=== PATIENT | female | born 1970 | race Two or more races ===

== ENCOUNTER 2018-12-22 13:34 | Emergency (ER) | payer BC ==
[~2018-12-22] VITALS: Ht 160 cm; Wt 77.6 kg
[2018-12-22 14:15] VITALS: BP 145/76
[2018-12-22] MEDS ORDERED: ACETAMINOPHEN/CODEINE#3 (300/30mg) TAB PO ONE (17:15)
== END 2018-12-22 17:49 | disposition home or self-care (01) ==
LOC: ER 13:34
DX: S92.352A Displaced fracture of fifth metatarsal bone, left foot, initial encounter for closed fracture (principal); X58.XXXA Exposure to other specified factors, initial encounter; Y93.89 Activity, other specified; Y92.89 Other specified places as the place of occurrence of the external cause; Y99.8 Other external cause status
CPT/HCPCS: 29515; 73610

== ENCOUNTER 2019-04-25 15:36 | Emergency (ER) | payer BC ==
[~2019-04-25] VITALS: Ht 157.5 cm; Wt 77.6 kg
[2019-04-25 16:19] VITALS: BP 118/77
== END 2019-04-25 17:41 | disposition home or self-care (01) ==
LOC: ER 15:36
DX: S93.601A Unspecified sprain of right foot, initial encounter (principal); X50.1XXA Overexertion from prolonged static or awkward postures, initial encounter; Y93.E9 Activity, other interior property and clothing maintenance; Y92.098 Other place in other non-institutional residence as the place of occurrence of the external cause; Y99.8 Other external cause status
CPT/HCPCS: 73630

== ENCOUNTER 2020-12-21 07:13 | Emergency (ER) | payer BC ==
[~2020-12-21] VITALS: Ht 157.5 cm; Wt 79.4 kg
[2020-12-21 08:11] VITALS: BP 153/98
[2020-12-21] MEDS ORDERED: ACETAMINOPHEN 325 MG TAB PO ONE (08:30)
[2020-12-21] MEDS ORDERED: cefTRIAXone SOD 1,000 MG VL IM ONE (08:30)
== END 2020-12-21 08:57 | disposition home or self-care (01) ==
LOC: ER 07:13
DX: L02.02 Furuncle of face (principal)
CPT/HCPCS: 96372; 99283; J0696

== ENCOUNTER 2022-02-03 13:20 | Emergency (ER) | payer BC ==
[~2022-02-03] VITALS: Ht 157.5 cm; Wt 76.0 kg
[2022-02-03 14:23] LABS: Basophils # (auto) 0 10 ^3/uL (0-0.2); Basophils % (auto) 0.4 % (0.0-2.0); Eosinophils # (auto) 0.1 10 ^3/uL (0-0.8); Eosinophils % (auto) 2.1 % (0.0-7.0); Hemoglobin 12.9 g/dL (12.2-16.2); Lymphocytes # (auto) 1.4 10 ^3/uL (0.4-5.4); Lymphocytes % (auto) 34.2 % (10.0-50.0); Mean Corpuscular Hemoglobin 30.7 pg (28.0-32.0); Mean Corpuscular Hgb Conc. 33.8 g/dL (32.0-36.0); Mean Corpuscular Volume 90.9 fL (80.0-100.0); Monocytes # (auto) 0.5 10 ^3/uL (0-1.3); Monocytes % (auto) 11.5 % (0.0-12.0); Neutrophils # (auto) 2.2 10 ^3/uL (1.6-8.6); Neutrophils % (auto) 51.8 % (37.0-80.0); Nucleated Red Blood Cells % 0.1 %; Red Blood Cells 4.18 10^6/uL (4.0-5.20); Red Cell Distribution Width 13.1 % (11.8-14.3); White Blood Cell 4.2 10^3/uL (4.4-10.8)
[2022-02-03 14:40] LABS: Albumin 3.7 g/dL (3.4-5.0); BUN/Creatinine Ratio 23.1; Calcium 8.7 mg/dL (8.5-10.1)
[2022-02-03 14:45] LABS: Bilirubin, Total 0.5 mg/dL (0.2-1.0); Potassium 4.4 mmol/L (3.5-5.1); Total Protein 6.7 g/dL (6.4-8.2)
[2022-02-03 14:53] LABS: Urine Bacteria FEW /hpf (None Seen); Urine Blood 1+ /uL (Negative); Urine Specific Gravity 1.015 (1.001-1.035); Urine WBC <1 /hpf (0 - 5)
[2022-02-03 15:27] VITALS: BP 135/89
[2022-02-03] MEDS ORDERED: CEPH-322 PO (15:35)
[2022-02-03] MEDS ORDERED: KETOROLAC TROMETH 30 MG/ML 1ML VIAL IM ONE (15:45)
[2022-02-03] MEDS ORDERED: CEPHALEXIN 250 MG CAP PO ONE (15:45)
== END 2022-02-03 15:42 | disposition home or self-care (01) ==
LOC: ER 13:20
DX: N30.00 Acute cystitis without hematuria (principal); E03.9 Hypothyroidism, unspecified
CPT/HCPCS: 36415; 80053; 81001; 81025; 85025

== ENCOUNTER 2022-02-13 17:11 | Emergency (ER) | payer BC ==
[~2022-02-13] VITALS: Ht 157.5 cm; Wt 85.0 kg
[~2022-02-13 17:11] MED LIST: CEPH-322 PO
[2022-02-13 18:33] LABS: Urine Bacteria NONE SEEN /hpf (None Seen); Urine Blood 2+ /uL (Negative); Urine Specific Gravity 1.015 (1.001-1.035); Urine WBC 1 /hpf (0 - 5)
[2022-02-13 19:05] LABS: Basophils # (auto) 0 10 ^3/uL (0-0.2); Basophils % (auto) 0.6 % (0.0-2.0); Eosinophils # (auto) 0.1 10 ^3/uL (0-0.8); Hematocrit 39.9 % (36.0-46.0); Hemoglobin 13.4 g/dL (12.2-16.2); Lymphocytes # (auto) 1.7 10 ^3/uL (0.4-5.4); Lymphocytes % (auto) 39.3 % (10.0-50.0); Mean Corpuscular Hemoglobin 30.7 pg (28.0-32.0); Mean Corpuscular Hgb Conc. 33.6 g/dL (32.0-36.0); Mean Corpuscular Volume 91.4 fL (80.0-100.0); Monocytes # (auto) 0.3 10 ^3/uL (0-1.3); Monocytes % (auto) 6.4 % (0.0-12.0); Neutrophils # (auto) 2.2 10 ^3/uL (1.6-8.6); Neutrophils % (auto) 50.7 % (37.0-80.0); Red Blood Cells 4.37 10^6/uL (4.0-5.20); Red Cell Distribution Width 12.7 % (11.8-14.3); White Blood Cell 4.4 10^3/uL (4.4-10.8)
[2022-02-13 19:17] LABS: Potassium 3.5 mmol/L (3.5-5.1)
[2022-02-13 19:22] LABS: Albumin 3.8 g/dL (3.4-5.0); BUN/Creatinine Ratio 18.7; Calcium 8.5 mg/dL (8.5-10.1)
[2022-02-13 19:27] LABS: Bilirubin, Total 0.9 mg/dL (0.2-1.0); Total Protein 7.3 g/dL (6.4-8.2)
[2022-02-13] MEDS ORDERED: IOHEXOL 350 MG/ML 100ML IJ ONE (20:52)
[2022-02-13] MEDS ORDERED: KETOROLAC TROMETH 30 MG/ML 1ML VIAL IV ONE (21:45)
[2022-02-13 22:10] VITALS: BP 130/90
== END 2022-02-13 22:15 | disposition home or self-care (01) ==
LOC: ER 17:11
DX: K57.90 Diverticulosis of intestine, part unspecified, without perforation or abscess without bleeding (principal); Z79.899 Other long term (current) drug therapy
CPT/HCPCS: 36415; 74176; 74177; 80053; 81001; 83690; 85025; 96374; 99285; J1885; Q9967

== ENCOUNTER 2022-07-21 21:42 | Emergency (ER) | payer BC ==
[~2022-07-21] VITALS: Ht 152.4 cm; Wt 90.0 kg
[~2022-07-21 21:42] MED LIST changes: -CEPH-322 PO; +CEPH250C PO
[2022-07-21] MEDS ORDERED: DexAMETHasone SOD PHOS 10MG/1ML VIAL INJ IV ONE (22:00)
[2022-07-21] MEDS ORDERED: IPRATROPIUM BROM 0.5 MG/2.5ML INH SOL NEB ONE (22:00)
[2022-07-21] MEDS ORDERED: ALBUTEROL SULF 2.5 MG/0.5ML(0.5%) NEB SOLN NEB ONE (22:00)
[2022-07-21] MEDS ORDERED: BUDESONIDE (INHALATION) 0.5 MG/2 ML NEB NEB ONE (22:00)
[2022-07-21] MEDS ORDERED: SODIUM CHLORIDE 0.9% 1,000 ML IV ONE (22:00)
[2022-07-21] MEDS ORDERED: FAMOTIDINE (10MG/ML) 2ML VL IV ONE (22:15)
[2022-07-21] MEDS ORDERED: EPINEPHrine HCL 0.5 ML NEB NEB ONE (22:15)
[2022-07-21 22:32] LABS: Basophils # (auto) 0 10 ^3/uL (0-0.2); Basophils % (auto) 0.5 % (0.0-2.0); Eosinophils # (auto) 0.1 10 ^3/uL (0-0.8); Hematocrit 45.3 % (36.0-46.0); Hemoglobin 15.4 g/dL (12.2-16.2); Lymphocytes # (auto) 2.8 10 ^3/uL (0.4-5.4); Lymphocytes % (auto) 42.5 % (10.0-50.0); Mean Corpuscular Hemoglobin 30.7 pg (28.0-32.0); Mean Corpuscular Volume 90.1 fL (80.0-100.0); Monocytes # (auto) 0.4 10 ^3/uL (0-1.3); Monocytes % (auto) 6.5 % (0.0-12.0); Neutrophils # (auto) 3.3 10 ^3/uL (1.6-8.6); Neutrophils % (auto) 49.5 % (37.0-80.0); Nucleated Red Blood Cells % 0.3 %; Red Blood Cells 5.03 10^6/uL (4.0-5.20); Red Cell Distribution Width 13.3 % (11.8-14.3); White Blood Cell 6.7 10^3/uL (4.4-10.8)
[2022-07-21 22:49] LABS: Albumin 4.3 g/dL (3.4-5.0); Calcium 9.2 mg/dL (8.5-10.1)
[2022-07-21 22:53] LABS: BUN/Creatinine Ratio 14.7 (10.0-20.0); Bilirubin, Total 0.7 mg/dL (0.2-1.0); Total Protein 7.8 g/dL (6.4-8.2)
[2022-07-21 23:43] LABS: Lactic Acid w/Reflex 2.3 mmol/L (0.4-2.0)
[2022-07-21] MEDS ORDERED: IOHEXOL 350 MG/ML 100ML IJ ONE (23:56)
[2022-07-22 01:00] VITALS: BP 121/75
[2022-07-22] MEDS ORDERED: EPIN0.1I11 IJ (01:07)
[2022-07-22] MEDS ORDERED: METH4PAK PO (01:10)
== END 2022-07-22 02:46 | disposition home or self-care (01) ==
LOC: ER 21:42 → EDBD 21:42 → ER 07-22 02:46
DX: T88.6XXA Anaphylactic reaction due to adverse effect of correct drug or medicament properly administered, initial encounter (principal); Z88.8 Allergy status to other drugs, medicaments and biological substances; Z98.890 Other specified postprocedural states; Y92.89 Other specified places as the place of occurrence of the external cause
CPT/HCPCS: 36415; 71275; 80053; 83605; 84484; 85025; 85379; 87040; 93970; 94640; 96361; 96374; 96375; 99285; J1100; J3490; J7030; J7644; Q9967

== ENCOUNTER 2022-09-30 09:20 | Emergency (ER) | payer BC ==
[~2022-09-30] VITALS: Ht 157.5 cm; Wt 82.0 kg
[~2022-09-30 09:20] MED LIST changes: +EPIN0.1I11 IJ; +METH4PAK PO
[2022-09-30 09:58] VITALS: BP 133/84; PULSE 71; RESP 18; TEMP 98.3; O2SAT 98
== END 2022-09-30 11:19 | disposition home or self-care (01) ==
LOC: ER 09:20
DX: S93.491A Sprain of other ligament of right ankle, initial encounter (principal); Z98.890 Other specified postprocedural states; Z88.8 Allergy status to other drugs, medicaments and biological substances; Z79.899 Other long term (current) drug therapy; W22.8XXA Striking against or struck by other objects, initial encounter; Y93.89 Activity, other specified; Y92.89 Other specified places as the place of occurrence of the external cause; Y99.8 Other external cause status
CPT/HCPCS: 73610

== ENCOUNTER 2023-10-18 08:51 | Day surgery (SDC) | payer BC ==
[~2023-10-18] VITALS: Ht 157.5 cm; Wt 77.1 kg
[~2023-10-18 08:51] MED LIST changes: -CEPH250C PO; +DESV50TA13 OR; -EPIN0.1I11 IJ; -METH4PAK PO; +METH5TAB98 PO; +SEMA1.7I SC
[2023-10-18] MEDS ORDERED: ceFAZolin 2 GM/D5W50ml 50 ML IV ONE (09:00)
[2023-10-18] MEDS ORDERED: HEPARIN SODIUM (PORCINE) 5000 UNITS/ML 1ML VIAL ONE (09:01)
[2023-10-18] MEDS ORDERED: PROPOFOL 10 MG/ML 20 ML IV ONE (09:55)
[2023-10-18] MEDS ORDERED: fentaNYL CITRATE 100 MCG/2 ML VL ONE (09:55)
[2023-10-18] MEDS ORDERED: MEPERIDINE HCL (50 MG/ML) 1 ML VIAL ONE (10:38)
[2023-10-18] MEDS: BUPIVACAINE 0.5% MPF INJ 30ML SDV IJ ONE (10:38)
[2023-10-18] MEDS: LIDOCAINE 1% HCL (LOCAL ANESTH.) INJ 20ML MDV ONE (10:38)
[2023-10-18] MEDS ORDERED: ONDANSETRON HCL 4 MG/2 ML VIAL ONE (10:39)
[2023-10-18] MEDS ORDERED: DexAMETHasone SOD PHOS 10MG/1ML VIAL INJ ONE (10:39)
[2023-10-18 10:55] VITALS: PULSE 87; RESP 12; TEMP 97.3; O2SAT 95
[2023-10-18] MEDS ORDERED: HYDROmorphone HCL 2 MG/ML VL/or syr IV PRN (11:00)
[2023-10-18] MEDS ORDERED: MEPERIDINE HCL (25 MG/ML) 1ML VIAL IV PRN (11:00)
[2023-10-18] MEDS ORDERED: HYDR-4902 PO (11:12)
[2023-10-18 11:30] VITALS: BP 107/79; PULSE 81; RESP 15; O2SAT 97
[2023-10-18] MEDS: ONDANSETRON HCL 4 MG/2 ML VIAL IV ONE (11:44)
== END 2023-10-18 11:50 | disposition home or self-care (01) ==
LOC: SUR 08:51
DX: N64.1 Fat necrosis of breast (principal); N63.20 Unspecified lump in the left breast, unspecified quadrant; K21.9 Gastro-esophageal reflux disease without esophagitis; E05.90 Thyrotoxicosis, unspecified without thyrotoxic crisis or storm; E66.9 Obesity, unspecified; F41.9 Anxiety disorder, unspecified; Z98.890 Other specified postprocedural states; Z88.6 Allergy status to analgesic agent; Z88.8 Allergy status to other drugs, medicaments and biological substances; Z82.49 Family history of ischemic heart disease and other diseases of the circulatory system
CPT/HCPCS: 19301; 88305; 88342; J0690; J1100; J1644; J2175; J2405; J2704; J3010; J3490; J2001